=== PATIENT | female | born 1990 | race Caucasian/White ===

== ENCOUNTER → 2022-06-23 10:32 | Outpatient (BNVA) | payer MEDICAID, SELFPAY | PROVIDERS: PCP Physician Assistant; Visit Provider Internal Medicine Rheumatology | DX: M45.6 Ankylosing spondylitis lumbar region (principal); Z79.899 Other long term (current) drug therapy; M19.90 Unspecified osteoarthritis, unspecified site; Z11.59 Encounter for screening for other viral diseases; M79.7 Fibromyalgia | CPT/HCPCS: 36415; 73130; 73630; 80076; 82306; 82565; 85025; 85651; 86140; 86480; 86704; 86803; 86812; 87340 ==

== ENCOUNTER 2022-10-15 09:30 | Outpatient (CLI) | payer MEDICAID, SELFPAY ==
[2022-10-15 10:36] LABS: Basophils % 0.3 %; Eosinophils # 0.2 10^3/uL (0.0-0.8); Eosinophils % 1.9 %; Hematocrit 39.4 % (37.0-47.0); Hemoglobin 12.8 g/dL (11.5-15.3); Lymphocytes # 3.5 10^3/uL (0.8-4.8); Lymphocytes % 29.2 %; Mean Corpuscular HGB Conc 32.5 g/dL (30.0-36.0); Mean Corpuscular Hemoglobin 28.3 pg (28.0-34.0); Mean Corpuscular Volume 87.2 fl (81-99); Mean Platelet Volume 9.2 fL (7.4-10.4); Monocytes # 0.5 10^3/uL (0.2-0.9); Neutrophils # 7.61 10^3/uL (1.8-7.7); Neutrophils % 64.2 %; Nucleated Red Blood Cells % 0 %; Platelet Count 355 10^3/cmm (130-400); Red Blood Count 4.52 10^6/uL (4.1-5.3); Red Cell Distribution Width 14.6 % (12.1-15.1); White Blood Count 11.8 10^3/uL (4.0-10.0)
[2022-10-15 10:55] LABS: Alanine Aminotransferase 10 U/L (0-33); Alkaline Phosphatase 102 U/L (35-105); Aspartate Amino Transferase 10 U/L (0-32); C Reactive Protein 13.4 mg/L (0.0-4.9); Globulin 2.6 g/dL (1.3-4.6); Glomerular Filtration Rate 116.6 mL/min (90-130); Total Bilirubin 0.2 mg/dL (0.15-1.2); Total Protein 6.6 g/dL (6.6-8.7)
== END 2022-10-15 09:31 | disposition home or self-care (01) ==
PROVIDERS: PCP Physician Assistant; Visit Provider Internal Medicine Rheumatology
DX: L40.50 Arthropathic psoriasis, unspecified (principal); M19.90 Unspecified osteoarthritis, unspecified site; Z79.899 Other long term (current) drug therapy
CPT/HCPCS: 36415; 80076; 82565; 85025; 86140

== ENCOUNTER 2022-10-18 06:00 | Outpatient (RCR) | payer MEDICAID, SELFPAY | END 2022-11-07 23:59 | disposition home or self-care (01) | LOC: MPT 06:00 | PROVIDERS: PCP Physician Assistant; Visit Provider Internal Medicine Rheumatology | DX: M79.7 Fibromyalgia (principal); L40.50 Arthropathic psoriasis, unspecified; G89.29 Other chronic pain; M54.50 Low back pain, unspecified | CPT/HCPCS: 97110; 97140; 97162; G0283 ==

== ENCOUNTER 2022-11-08 06:00 | Outpatient (RCR) | payer MEDICAID, SELFPAY | END 2022-12-08 23:59 | disposition home or self-care (01) | LOC: MPT 06:00 | PROVIDERS: PCP Physician Assistant; Visit Provider Internal Medicine Rheumatology | DX: M54.50 Low back pain, unspecified (principal); G89.29 Other chronic pain; M79.7 Fibromyalgia | CPT/HCPCS: 97110; 97140; G0283 ==

== ENCOUNTER 2022-12-09 06:00 | Outpatient (RCR) | payer MEDICAID, SELFPAY | END 2023-01-07 23:59 | disposition home or self-care (01) | LOC: MPT 06:00 | PROVIDERS: PCP Physician Assistant; Visit Provider Internal Medicine Rheumatology | DX: M54.50 Low back pain, unspecified (principal); G89.29 Other chronic pain; M79.7 Fibromyalgia | CPT/HCPCS: 97110; 97140; G0283 ==

== ENCOUNTER → 2022-12-15 11:59 | Outpatient (BNVA) | payer MEDICAID, SELFPAY | PROVIDERS: PCP Physician Assistant; Visit Provider Internal Medicine Rheumatology | DX: L40.50 Arthropathic psoriasis, unspecified (principal); Z79.899 Other long term (current) drug therapy; M24.9 Joint derangement, unspecified; R79.82 Elevated C-reactive protein (CRP); M79.7 Fibromyalgia; Z71.85 Encounter for immunization safety counseling | CPT/HCPCS: 36415; 80076; 82565; 85025; 86140 ==